=== PATIENT | male | born 1985 | race African-American/Black ===

== ENCOUNTER 2023-10-09 11:49 | Emergency (ER) | payer MEDICAID ==
[~2023-10-09] VITALS: Ht 160 cm; Wt 77.1 kg
[2023-10-09 11:52] VITALS: BP 128/81; PULSE 78; RESP 14; TEMP 98.1; O2SAT 100
[2023-10-09 12:30] LABS: BASOPHILS # (AUTO) 0.1 K/uL (0.00-0.22); BASOPHILS % (AUTO) 1.1 % (0.0-2.0); EOSINOPHILS # (AUTO) 0.1 K/uL (0-0.4); HEMATOCRIT 40.2 % (36-52); HEMOGLOBIN 13.4 g/dL (12.0-18.0); LYMPHOCYTES # (AUTO) 1.6 K/uL (2.0-11.5); LYMPHOCYTES % (AUTO) 29.2 % (20.5-51.1); MEAN CORPUSCULAR HEMOGLOBIN 29 pg (27-31); MEAN CORPUSCULAR HGB CONC 33 g/dL (33-37); MEAN CORPUSCULAR VOLUME 88.3 fL (80-94); MONOCYTES # (AUTO) 0.5 K/uL (0.8-1.0); MONOCYTES % (AUTO) 9.3 % (1.7-9.3); NEUTROPHILS # (AUTO) 3.2 K/uL (1.8-7.7); NEUTROPHILS % (AUTO) 58.4 % (42.2-75.2); PLATELET COUNT (AUTO) 316 K/uL (140-450); RED BLOOD CELL COUNT(AUTO) 4.55 MIL/uL (4.20-6.10); WHITE BLOOD COUNT (AUTO) 5.5 K/uL (4.8-10.8)
[2023-10-09] MEDS: ACETAMINOPHEN 325 MG TAB PO ONE (12:43)
[2023-10-09 12:48] LABS: ANION GAP 11.1 (8-16); CALCIUM 8.8 mg/dL (8.5-10.1); CARBON DIOXIDE 28.7 mmol/L (21-32); POTASSIUM 3.8 mmol/L (3.5-5.1)
[2023-10-09 13:50] LABS: BARBITURATE, URINE NEGATIVE ng/ml (NEG <=200); BENZODIAZEPINE, URINE NEGATIVE ng/mL (NEG <=200); COCAINE, URINE NEGATIVE ng/mL (NEG <=300); OPIATE, URINE NEGATIVE ng/mL (NEG <=2000); PHENCYCLIDINE SCREEN,URINE NEGATIVE ng/mL (NEG <=25)
[2023-10-09 13:52] LABS: AMPHETAMINE, URINE POSITIVE ng/ml (NEG <=1000); CANNABINOID, URINE POSITIVE ng/mL (NEG <=50)
[2023-10-09 16:50] VITALS: BP 127/75; PULSE 89; RESP 16; TEMP 97.6; O2SAT 99
== END 2023-10-09 16:50 | disposition home or self-care (01) ==
LOC: MED 11:49
DX: F32.A Depression, unspecified (principal); R19.5 Other fecal abnormalities; Z20.822 Contact with and (suspected) exposure to COVID-19
CPT/HCPCS: 36415; 80048; 80305; 85025; 99285